=== PATIENT | male | born 1985 | race Hispanic/Latino ===

== ENCOUNTER 2018-09-28 09:29 | Emergency (ER) | payer SELFPAY ==
[2018-09-28 09:44] VITALS: TEMP 98.5
[2018-09-28] MEDS ORDERED: LIDOCAINE 1% 10 ML VIAL INJ ONE (09:45)
[2018-09-28] MEDS ORDERED: CHLORHEXIDINE GLUCONATE 4 % 15 ML UD TOP ONE (09:46)
[2018-09-28] MEDS ORDERED: NEOMYCIN-BACITRACIN-POLYMYXIN 0.9 GM UD TOP ONE (09:52)
[2018-09-28] MEDS ORDERED: BUPIVACAINE 0.5% 30 ML VIAL INJ ONE (09:56)
--- NOTE | 2018-09-28 11:17 | ED.PDOC ---
History of Present Illness - General Chief Complaint: Laceration Stated Complaint: laceration to finger Time Seen by Provider: 09/28/18 11:15 Source: patient Exam Limitations: no limitations - History of Present Illness Initial Comments: SLIPPED WHILE TOÑA. 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 DENIES OTHER INJURIES. Timing/Duration: just prior to arrival Severity: mild Improving Factors: nothing Worsening Factors: nothing Allergies/Adverse Reactions: Allergies NO KNOWN ALLERGY Allergy (Verified 09/28/18 09:44) Home Medications: Ambulatory Orders Cephalexin Monohydrate [Keflex] 500 mg PO TID #30 cap 09/28/18 Review of Systems - Review of Systems Constitutional: Denies: chills, fever EENTM: Denies: no symptoms reported Musculoskeletal: Denies: back pain, neck pain Skin: States: other - LACERATION L RING FINGER Neurological: States: no symptoms reported Past Medical History (General) - Patient Medical History Hx Stroke: No Hx Congestive Heart Failure: No Hx Diabetes: No Surgical History: no surgical history - Vaccination History Hx Tetanus, Diphtheria Vaccination: Yes - 2017 Hx Influenza Vaccination: No - Social History Hx Tobacco Use: Yes Family Medical History - Family History Father Family History: Unknown Living Status: Unknown Physical Exam - Physical Exam General Appearance: Alert, No apparent distress Eyes, Ears, Nose, Throat Exam: PERRL/EOMI Neck: non-tender, full range of motion Back Exam: normal inspection Extremity: normal range of motion, non-tender, other - AVULSION LACERATION PAD L RING FINGER FROM DIP JT TO MID DISTAL PHALANX. NVI, GOOD CAP REFILL. Neurologic: no motor/sensory deficits Skin Exam: other - SEE EXT Procedures - Laceration/Wound Repair Left Finger Wound Length (cm): 4.5 Wound Explored: no foreign body removed Irrigated w/ Saline (cc's): 50 - LACERATION INVOLVES ONLY PAD, NO APPARENT TENDON INVOLVEMENT Anesthesia: 1% Lidocaine, 0.5% Sensorcaine Volume Anesthetic (cc's): 5 - DIGITAL BLOCK. 1;1 Wound Repaired With: sutures Suture Size/Type: 4:0, prolene Number of Sutures: 9 Layer Closure?: No Sterile Dressing Applied?: Yes Departure - Departure Clinical Impression: Laceration of finger Qualifiers: Encounter type: initial encounter Finger: ring finger Damage to nail status: without damage Foreign body presence: without foreign body Laterality: left Qualified Code(s): S61.215A - Laceration without foreign body of left ring finger without damage to nail, initial encounter Time of Disposition: 11:23 Disposition: Discharge to Home or Self Care Condition: Good Departure Forms: ED Discharge - Pt. Copy, Patient Portal Self Enrollment Prescriptions: Cephalexin Monohydrate [Keflex] 500 mg PO TID #30 cap Home Medications: Ambulatory Orders Cephalexin Monohydrate [Keflex] 500 mg PO TID #30 cap 09/28/18
[2018-09-28 11:30] VITALS: BP 131/88; O2SAT 99
== END 2018-09-28 11:30 | disposition home or self-care (01) ==
LOC: ER 09:29
DX: S61.215A Laceration without foreign body of left ring finger without damage to nail, initial encounter (principal); W45.8XXA Other foreign body or object entering through skin, initial encounter; W18.40XA Slipping, tripping and stumbling without falling, unspecified, initial encounter; Y93.89 Activity, other specified; Y92.89 Other specified places as the place of occurrence of the external cause; Z87.891 Personal history of nicotine dependence